=== PATIENT | male | born 1980 | race Two or more races ===

== ENCOUNTER 2021-07-06 01:42 | Emergency (ER) | payer BC, OTHER ==
[~2021-07-06] VITALS: Ht 162.6 cm; Wt 88.0 kg
--- NOTE | 2021-07-06 01:45 | NUR ---
GIACOMO 839 FROM HOME FOR C/O R FLANK PAIN X 30 MIN, DENIED DYSURIA OR HEMATURIA. PATIENT ALERT AND ORIENTED X3. AMBULATORY WITH NON LABORED BREATHING. IN BED 09 ON MONITOR AND POX.
[2021-07-06] MEDS ORDERED: MORPHINE SULFATE INJ 4 MG/ML DISP.SYRIN ONE (01:57)
[2021-07-06] MEDS ORDERED: ONDANSETRON HCL/PF 4 MG/2 ML VIAL ONE (01:57)
[2021-07-06] MEDS ORDERED: MORPHINE SULFATE INJ 2 MG/ML DISP.SYRIN IV ONE (02:00)
[2021-07-06] MEDS ORDERED: ONDANSETRON HCL/PF 4 MG/2 ML VIAL IVP ONE (02:00)
--- NOTE | 2021-07-06 02:05 | NUR ---
BLOOD COLLECTED AND SENT TO LAB.
--- NOTE | 2021-07-06 02:05 | NUR ---
PT UNABLE TO GIVE URINE AT THIS TIME. PROVIDED WITH URINAL AT BEDSIDE.
[2021-07-06 02:06] LABS: BASOPHILS % (AUTO) 0.3 % (0.0-2.0); EOSINOPHILS % (AUTO) 1.1 % (0.0-6.0); HEMATOCRIT 42 % (39-51); HEMOGLOBIN 13.9 g/dL (13.5-17.5); LYMPHOCYTES # (AUTO) 3.2 K/uL (0.8-4.8); LYMPHOCYTES % (AUTO) 35.9 % (20.0-44.0); MEAN CORPUSCULAR HGB CONC 33 g/dl (31.0-36.0); MEAN CORPUSCULAR VOLUME 91 fL (80-96); MONOCYTES # (AUTO) 0.5 K/uL (0.1-1.30); MONOCYTES % (AUTO) 5.6 % (2.0-12.0); NEUTROPHILS # (AUTO) 5.1 K/uL (1.8-8.9); NEUTROPHILS % (AUTO) 57.1 % (43.0-81.0); PLATELET COUNT (AUTO) 181 K/uL (150-450); RED BLOOD CELL COUNT(AUTO) 4.58 MIL/uL (4.5-6.0); WHITE BLOOD COUNT (AUTO) 8.9 K/uL (4.3-11.0)
[2021-07-06 02:20] LABS: ALBUMIN 3.6 g/dL (3.4-5.0); BILIRUBIN,DIRECT 0.1 mg/dL (0.0-0.2); BILIRUBIN,TOTAL 0.3 mg/dL (0.2-1.0); CALCIUM, SERUM 8.8 mg/dL (8.5-10.1); POTASSIUM 3.5 mmol/L (3.5-5.1); TOTAL PROTEIN, SERUM 7.5 g/dL (6.4-8.2)
[2021-07-06] MEDS ORDERED: INSULIN REGULAR, HUMAN 100 UNIT/ML 10 ML VIAL ONE (02:57)
[2021-07-06] MEDS ORDERED: HYDROMORPHONE 1 MG/1 ML DISP.SYRIN ONE (02:58)
[2021-07-06] MEDS ORDERED: KETOROLAC TROMETHAMINE INJ 30 MG/ML VIAL ONE (02:58)
[2021-07-06] MEDS ORDERED: IV NS 0.9% 1,000 ML BAG IV ONE (03:00)
[2021-07-06] MEDS ORDERED: INSULIN REGULAR, HUMAN 100 UNIT/ML 10 ML VIAL SQ ONE ×2 (03:00→06:00)
[2021-07-06] MEDS ORDERED: HYDROMORPHONE 1 MG/1 ML DISP.SYRIN IV ONE (03:00)
[2021-07-06] MEDS ORDERED: KETOROLAC TROMETHAMINE INJ 30 MG/ML VIAL IV ONE (03:00)
[2021-07-06 03:04] LABS: BILIRUBIN,URINE NEGATIVE (NEGATIVE); COLOR,URINE YELLOW (YELLOW); LEUKOCYTE ESTERASE ,URINE NEGATIVE (NEGATIVE); NITRITE, URINE NEGATIVE (NEGATIVE); PH,URINE 5.5 (5.0-8.0); PROTEIN,URINE NEGATIVE (NEGATIVE); UGLUCOSE >=1000 mg/dL (NEGATIVE); UROBILINOGEN,URINE 0.2 EU/dL (0.2)
[2021-07-06 03:14] LABS: RBC,URINE TOO NUMEROUS TO COUN /HPF (0-2)
[2021-07-06 03:15] LABS: BACTERIA,URINE None seen /HPF (None Seen); SQUAMOUS EPITHELIAL CELL,UR None Seen /HPF (None Seen); WBC,URINE NONE SEEN /HPF (0-3)
[2021-07-06 04:30] VITALS: BP 138/88
--- NOTE | 2021-07-06 04:30 | NUR ---
Patient discharged to home in stable condition. Written and verbal after care instructions given. Patient verbalizes understanding of instruction.
[2021-07-06] MEDS ORDERED: HYDROCODONE/APAP 10/325MG TABLET ONE (05:56)
[2021-07-06] MEDS ORDERED: HYDROCODONE/APAP 10/325MG TABLET PO ONE (06:00)
[2021-07-06] MEDS ORDERED: IBUP-1955 PO (06:41)
[2021-07-06] MEDS ORDERED: TAMS-12 PO (06:41)
[2021-07-06] MEDS ORDERED: HYDR-4303 PO (06:43)
== END 2021-07-06 06:51 | disposition home or self-care (01) ==
LOC: ER 01:43
DX: N23 Unspecified renal colic (principal); E11.65 Type 2 diabetes mellitus with hyperglycemia
CPT/HCPCS: 36415; 74176; 80048; 80076; 81001; 82962; 83690; 85025; 96361; 96372 ×2; 96374; 96375; 99285; J1170; J1815; J1885; J2270; J2405; J7030